=== PATIENT | male | born 1930 | race Caucasian/White ===

== ENCOUNTER 2016-11-02 21:50 | Emergency (ER) | payer MEDICARE, BC ==
[~2016-11-02 21:50] MED LIST: ASAB PO; CORDARONE PO; COUMADIN4 MG PO; FLOMAX4 PO; LOP50 PO; NAMENDA10 MG PO; ZOCOR20 PO
[2016-11-02 22:30] LABS: BASOPHILS 0.4 %; BASOPHILS ABSOLUTE 0.03 10/3/uL (0.0-0.16); EOSINOPHILS ABSOLUTE 0.07 10/3/uL (0.0-0.53); HEMOGLOBIN 15.3 g/dL (13.6-17.8); IMMATURE GRANULOCYTES 0.4 %; IMMATURE GRANULOCYTES ABSOLUTE 0.03 10/3/uL (0.0-0.11); LYMPHOCYTES 24.4 %; LYMPHOCYTES ABSOLUTE 1.79 10/3/uL (0.67-4.30); MEAN CORPUS HGB CONC 33.6 g/dL (32.0-36.0); MEAN CORPUSCULAR HEMOGLOB 32.3 pg (26.0-34.0); MEAN PLATELET VOLUME 10.5 fL (9.2-13.0); MONOCYTES 9.7 %; MONOCYTES ABSOLUTE 0.71 10/3/uL (0.21-1.20); NEUTROPHILS 64.1 %; PLATELET COUNT 183 10/3/uL (150-400); RBC DISTRIBUTION WIDTH 14.3 % (12.0-16.0); RED CELL COUNT 4.73 10/6/uL (4.7-6.1); WHITE BLOOD CELLS 7.3 10/3/uL (4.5-10.5)
[2016-11-02 22:46] LABS: A/G RATIO 0.7 (0.7-1.9); ALBUMIN 3.5 G/DL (3.5-5.0); ALKALINE PHOSPHATASE 86 U/L (45-117); BUN (BLOOD UREA NITROGEN) 29 MG/DL (6-23); CALCIUM, SERUM 9.1 MG/DL (8.5-10.4); CHLORIDE, SERUM 103 MMOL/L (96-112); CO2 (CARBON DIOXIDE) 28 MMOL/L (24-34); CREATININE 1.32 MG/DL (0.70-1.30); GFR AFRICAN AMERICAN 56 ML/MIN (>=60); GFR NON AFRICAN AMERICAN 49 ML/MIN (>=60); GLOBULIN 4.8 G/DL (2.5-4.1); GLUCOSE, SERUM 122 MG/DL (60-99); POTASSIUM, SERUM 4.5 MMOL/L (3.5-5.3); SGOT(AST) 28 U/L (5-40); SGPT(ALT) 29 U/L (5-65); SODIUM, SERUM 139 MMOL/L (135-148); TOTAL BILIRUBIN 1.2 MG/DL (0-1.2); TOTAL PROTEIN 8.3 G/DL (6.0-8.5); TROPONIN I <0.02 NG/ML (<0.05)
[2016-11-02 22:47] LABS: HEMATOCRIT 45.6 % (40.0-51.0); MANUAL DIFF NO %; MEAN CORPUSCULAR VOLUME 96.4 fL (80-100)
[2016-11-03 03:00] LABS: ASCORBIC ACID (UR NOT ORDER) NEG (NEG); BILIRUBIN, URINE NEGATIVE (NEG); ER URINALYSIS TAT 0 Hrs 00 Mins; KETONE, URINE NEGATIVE (NEG); LEUKOCYTE ESTERASE(NOT OR NEG (NEG); NITRITE (URINE) NEG (NEG); WBC (NOT ORDERED) (RFLEX) 0 (0-5)
[2016-11-03 05:00] LABS: INTERNATIONAL NORMAL RATI 2.2 UNITS (-); PARTIAL THROMBO TIME 58.5 SEC (22.5-37.2)
[2016-11-03 05:15] LABS: PROTIME (NOT ORD) 24.6 SEC (12.0-14.5)
== END 2016-11-03 11:16 | disposition home or self-care (01) ==
LOC: ER 21:50
PROVIDERS: Nurse Practitioner Acute Care; Specialist
DX: R53.1 Weakness (principal); R19.7 Diarrhea, unspecified; F03.90 Unspecified dementia, unspecified severity, without behavioral disturbance, psychotic disturbance, mood disturbance, and anxiety; I10 Essential (primary) hypertension; F32.9 Major depressive disorder, single episode, unspecified; I48.0 Paroxysmal atrial fibrillation; Z86.73 Personal history of transient ischemic attack (TIA), and cerebral infarction without residual deficits; Z87.891 Personal history of nicotine dependence; Z88.8 Allergy status to other drugs, medicaments and biological substances; Z79.82 Long term (current) use of aspirin; Z79.899 Other long term (current) drug therapy
CPT/HCPCS: 71020; 80053; 81001; 84484; 85025; 85610; 85730; 87040; 93005; 99284

== ENCOUNTER 2016-12-27 17:44 | Inpatient (IN) | payer MEDICARE, BC ==
--- NOTE | ~2016-12-27 | DS ---
Discharge Summary [facility] [address] [place]. [address] NAME: TIFFANIE CONRAD JR : 30 STATUS : DIS IN PAT#: [id number] AGE: 86 ADM/REG DATE : 12/29/16 MR#: [id number] REPORT SERV DATE: 01/02/17 DICTATED BY: OMAYRA WINTERS DATE: 01/01/17 REPORT STATUS : Draft TRANSCRIBED BY: MODL DATE: 01/01/17 ADMISSION DATE: 12/29/2016 DISCHARGE DATE: 01/01/2017 HISTORY OF PRESENT ILLNESS: The patient is an 86-year-old male with a history of hypertension, BPH, atrial fibrillation, who presented to the hospital with a complaint of fevers and night sweats. For further details, please refer to H and P dictated by Dr. Hebert on 12/27/2016. HOSPITAL COURSE: I assumed care of the patient starting 12/30/2016. Briefly, the patient came into the emergency room with complaint of fever, night sweats, and urinary frequency. The patient was noted to have a positive UA in the emergency room. Given his symptoms and age, the patient was admitted under the Hospitalist Service for further evaluation and management. The patient was empirically started on broad spectrum antibiotic empirically. Urine cultures were obtained, which were positive for E coli. The patient was continued on antibiotics pending culture results. Upon availability of culture results, therapy was narrowed. The patient has completed antibiotic course. Repeat urine culture was negative. At the time of my assumption of care, the patient was no longer complaining of urinary symptoms; however, he was complaining of weakness and his white count was noted to be elevated. At the time of my assumption of care, the patient was also on IV antibiotics. Given resolution of his symptoms and given that the patient did not have any findings consistent with pneumonia, his IV antibiotics were discontinued. His white count continued to trend down and is currently normal. For his generalized weakness, Physical Therapy was consulted. Per their evaluation, recommendations were made for the patient to be discharged to [facility]. The patient was ready for discharge; however, there was no bed availability. Insurance approval has been obtained for the patient and bed has become available at [facility]. The patient has subsequently remained hemodynamically stable; however, prior to this morning, the patient's blood pressure has been controlled. Some of his home antihypertensives were held on admission. However, given his elevated blood pressure this morning, those medications will be restarted. The patient has remained stable. Given his stability and resolution of presenting symptoms, the patient will be discharged to rehab facility at [facility]. Plan has been discussed with the patient, who voices understanding and is agreeable with this plan. DISCHARGE DIAGNOSES: 1. Leukocytosis. 2. Urinary tract infection, secondary to Escherichia coli. 3. Atrial fibrillation. 4. Hypertension. 5. Obesity. 6. Benign prostatic hypertrophy. 7. Hypoxia. 8. Weakness. DISCHARGE EXAM: VITAL SIGNS: 157/89 with a pulse of 70, respirations 20, O2 saturation of 97% on 2 L nasal cannula. The patient has remained afebrile. Discharge Summary [address] [address] NAME: TIFFANIE CONRAD JR : 30 STATUS : DIS IN PAT#: [id number] AGE: 86 ADM/REG DATE : 12/29/16 MR#: [id number] REPORT SERV DATE: 01/02/17 DICTATED BY: OMAYRA WINTESR DATE: 01/01/17 REPORT STATUS : Draft TRANSCRIBED BY: OSCAR DATE: 01/01/17 GENERAL: The patient is lying in bed, very pleasant gentleman. Appears stated age, in no acute distress. HEENT: Normocephalic, atraumatic. Extraocular motors intact. Moist oral mucosa. NECK: Trachea midline and symmetric. No JVD. No thyromegaly noted. CHEST: Nontender to palpation. CARDIOVASCULAR: Irregularly irregular rate and rhythm. LUNGS: Clear to auscultation bilaterally. The patient has normal respiratory effort. ABDOMEN: Positive bowel sounds. Nontender. Nondistended. EXTREMITIES: No cyanosis, no clubbing, no edema. NEUROLOGIC: Alert and oriented x3. DISCHARGE MEDICATIONS: Astelin one spray nasal daily, docusate 100 mg p.o. twice a day, donepezil 10 mg p.o. at bedtime, Prozac 20 mg p.o. daily, Neurontin 100 mg p.o. at bedtime, magnesium oxide 400 mg p.o. daily, memantine 28 mg p.o. daily, metoprolol 20 mg p.o. twice a day, tamsulosin 0.4 mg p.o. every evening, warfarin 5 mg p.o. every evening, furosemide 20 mg p.o. daily, lisinopril 20 mg p.o. daily, potassium chloride 10 mEq p.o. daily. IMAGING: Ultrasound hepatic, echo, impression cholecystectomy. No ductal dilation. Liver appears normal. DISPOSITION: The patient will be discharged to [facility]. ACTIVITY: As tolerated. DIET: Cardiac diet. Greater than 30 minutes was spent coordinating discharge, medication reconciliation, providing counseling, and coordinating discharge. ALL/OSCAR Omayra Winters MD / [id number] CC: Omayra Winters MD
--- NOTE | ~2016-12-27 | HP ---
History And Physical [address] [place]. [address] NAME: TIFFANIE VENCES : 30 STATUS : ADM Fabrice [facility]#: [id number] AGE: 86 ADM/REG DATE : 12/27/16 MR#: [id number] REPORT SERV DATE: 12/27/16 DICTATED BY: TONY AVILA DATE: 12/27/16 REPORT STATUS : Draft TRANSCRIBED BY: MODL DATE: 12/27/16 DATE OF ADMISSION: 12/27/2016 POINT OF ENTRY: [facility] Emergency Department. CHIEF COMPLAINT: Fevers, night sweats. HISTORY OF PRESENT ILLNESS: Mr. Vences is an 86-year-old gentleman with a history of hypertension, hyperlipidemia, paroxysmal atrial fibrillation, on Coumadin as well as a remote history of cerebrovascular accident, who presents here today with a one-day history of low-grade fevers with chills as well as urinary frequency concerning for possible urinary tract infection. The patient states he was in his usual state of health until about one-day ago when he noted low-grade fevers about 99 to 100 degrees Fahrenheit with associated chills. He also reports urinary frequency, but denies any dysuria or urinary odor. Initial evaluation in the emergency department for a fever of 100.2 degrees Fahrenheit with white count is 11,300. INR is 2.5. Urinalysis is positive for urinary tract infection. The patient was subsequently admitted to the Hospitalist Service for further evaluation and management. The patient denies any troubles with chest pain, shortness of breath, abdominal pain, nausea, vomiting, diarrhea, constipation, melena, hematochezia, hemoptysis, or hematemesis. REVIEW OF SYSTEMS: A comprehensive review of systems otherwise negative unless listed in history of present illness. PREVIOUS MEDICAL HISTORY: 1. Remote history of CVA and TIA. 2. Hypertension. 3. Hyperlipidemia. 4. Paroxysmal atrial fibrillation, on Coumadin. 5. BPH. SURGICAL HISTORY: 1. TURP. 2. Cardiac ablation. 3. Cholecystectomy. 4. Facial and cancer surgery. ALLERGIES: NO KNOWN DRUG ALLERGIES. HOME MEDICATIONS: Pending at time of dictation. History And Physical [address] [place] [address] NAME: TIFFANIE VENCES : 30 STATUS : ADM Fabrice PAT#: [id number] AGE: 86 ADM/REG DATE : 12/27/16 MR#: [id number] REPORT SERV DATE: 12/27/16 DICTATED BY: TONY AVILA DATE: 12/27/16 REPORT STATUS : Draft TRANSCRIBED BY: OSCAR DATE: 12/27/16 SOCIAL HISTORY: Denies any tobacco, alcohol, or illicits. Now lives at [facility]. FAMILY MEDICAL HISTORY: Notable for coronary artery disease as well as multiple sclerosis. LABS AND IMAGIN. White count 11.3, hemoglobin 14.2, hematocrit 43.0, platelet count a 169. INR 2.5. 2. Sodium is 140, potassium 4.4, chloride 102, carbon dioxide 32, BUN 21, creatinine 1.24, glucose is 128, calcium is 9.4, protein 8.2, albumin 3.4, bilirubin is 2.2. ALT is 27, AST 18, alkaline phosphatase is 104. 3. Lactic acid is 2.1. 4. Urinalysis: Specific gravity is 1.011, trace ketones, positive nitrites, trace leukocyte esterase with 26 white blood cells per high-powered field with few bacteria. 5. Chest x-ray per my review shows no acute cardiopulmonary abnormality, but with poor penetration and poor inspiration. PHYSICAL EXAMINATION: VITAL SIGNS: Temperature is 100.2 degrees Fahrenheit, pulse is 102, respirations 22, saturating 94% on room air, blood pressure 159/80. GENERAL: The patient is awake, alert, in no acute distress. Resting comfortably. He is a well-developed, well-nourished, elderly male. HEENT: Atraumatic and normocephalic. Slightly dry mucous membranes. Pupils are equal, round, reactive to light and accommodation. Extraocular eye movements are intact. No scleral icterus. NECK: No jugular venous distention. No carotid bruits. CARDIAC: Irregularly irregular rate and rhythm. No murmurs or gallops. Normal S1, S2. LUNGS: Clear to auscultation bilaterally. No wheezes, rhonchi, or crackles. ABDOMEN: Soft, nontender, nondistended. Good bowel sounds. No rebound, guarding, or rigidity. EXTREMITIES: Warm and perfused. No cyanosis, clubbing, or edema. SKIN: Warm and dry. PSYCH: Affect appropriate. NEURO: Alert and oriented x3. Cranial nerves 2 through 12 grossly intact. Speech is normal. Gait not assessed. ASSESSMENT AND PLAN: Mr. Vences is an 86-year-old gentleman who presents with a one-day history of low-grade fevers, chills, and urinary frequency and found to have evidence of positive urinalysis concerning for pyelonephritis. PROBLEM LIST: 1. Pyelonephritis. 2. Dehydration. 3. Paroxysmal atrial ablation, on Coumadin. 4. Hyperbilirubinemia. PLAN: 1. Pyelonephritis. The patient meets criteria for pyelonephritis with fevers as well as chills and a positive urinalysis. We will follow up urine culture. Given History And Physical [address] [address] NAME: TIFFANIE VENCES JR : 30 STATUS : ADM Fabrice PAT#: [id number] AGE: 86 ADM/REG DATE : 12/27/16 MR#: [id number] REPORT SERV DATE: 12/27/16 DICTATED BY: TONY AVILA DATE: 12/27/16 REPORT STATUS : Draft TRANSCRIBED BY: MODL DATE: 12/27/16 pyelonephritis, he is placed on IV cefepime. We will narrow antibiotics per culture results. 2. Dehydration, IV fluids. 3. Paroxysmal atrial fibrillation, on Coumadin. We will continue the patient's home Coumadin, pharmacy to manage. 4. Hyperbilirubinemia. We will check a right upper quadrant ultrasound. Per review of [facility], it reveals that he has had elevated bilirubins in the past, but no evidence of any recent abdominal imaging. 5. DVT prophylaxis. The patient is on Coumadin. CODE STATUS: The patient wishes to be full code. ISMAEL/MODL Tony Avila MD / [id number] CC: MD Julián Lane MD
[2016-12-27 19:15] LABS: BASOPHILS 0.1 %; BASOPHILS ABSOLUTE 0.01 10/3/uL (0.0-0.16); EOSINOPHILS 0.1 %; EOSINOPHILS ABSOLUTE 0.01 10/3/uL (0.0-0.53); ER CBC TAT 0 Hrs 09 Mins; HEMOGLOBIN 14.2 g/dL (13.6-17.8); IMMATURE GRANULOCYTES 0.2 %; IMMATURE GRANULOCYTES ABSOLUTE 0.02 10/3/uL (0.0-0.11); LYMPHOCYTES 8.2 %; LYMPHOCYTES ABSOLUTE 0.93 10/3/uL (0.67-4.30); MANUAL DIFF NO %; MEAN CORPUSCULAR HEMOGLOB 31.7 pg (26.0-34.0); MEAN PLATELET VOLUME 10.9 fL (9.2-13.0); MONOCYTES ABSOLUTE 1.02 10/3/uL (0.21-1.20); NEUTROPHILS 82.4 %; NEUTROPHILS ABSOLUTE 9.35 10/3/uL (2.02-8.40); PLATELET COUNT 169 10/3/uL (150-400); RBC DISTRIBUTION WIDTH 14.7 % (12.0-16.0); RED CELL COUNT 4.48 10/6/uL (4.7-6.1); WHITE BLOOD CELLS 11.3 10/3/uL (4.5-10.5)
[2016-12-27 19:22] LABS: INTERNATIONAL NORMAL RATI 2.5 UNITS (-); PROTIME (NOT ORD) 26.5 SEC (12.0-14.5)
[2016-12-27 19:23] LABS: PARTIAL THROMBO TIME 59.8 SEC (22.5-37.2)
[2016-12-27 19:28] LABS: ASCORBIC ACID (UR NOT ORDER) NEG (NEG); BILIRUBIN, URINE NEGATIVE (NEG); ER URINALYSIS TAT 0 Hrs 24 Mins; KETONE, URINE TRACE MG/DL (NEG); LEUKOCYTE ESTERASE(NOT OR TRACE (NEG); NITRITE (URINE) POS (NEG); WBC (NOT ORDERED) (RFLEX) 26 (0-5)
[2016-12-27 19:29] LABS: A/G RATIO 0.7 (0.7-1.9); ALBUMIN 3.4 G/DL (3.5-5.0); CALCIUM, SERUM 9.4 MG/DL (8.5-10.4); CHLORIDE, SERUM 102 MMOL/L (96-112); CO2 (CARBON DIOXIDE) 32 MMOL/L (24-34); CREATININE 1.24 MG/DL (0.70-1.30); GFR AFRICAN AMERICAN 61 ML/MIN (>=60); GFR NON AFRICAN AMERICAN 52 ML/MIN (>=60); GLOBULIN 4.8 G/DL (2.5-4.1); GLUCOSE, SERUM 128 MG/DL (60-99); POTASSIUM, SERUM 4.4 MMOL/L (3.5-5.3); SGOT(AST) 18 U/L (5-40); SGPT(ALT) 27 U/L (5-65); SODIUM, SERUM 140 MMOL/L (135-148); TOTAL PROTEIN 8.2 G/DL (6.0-8.5)
[2016-12-27 19:30] LABS: LACTATE 2.1 MMOL/L (0.3-2.4)
[2016-12-27 19:33] LABS: ALKALINE PHOSPHATASE 104 U/L (45-117); BUN (BLOOD UREA NITROGEN) 21 MG/DL (6-23); TOTAL BILIRUBIN 2.2 MG/DL (0-1.2)
[2016-12-27] MEDS ORDERED: NORV25 PO (20:48)
[2016-12-27] MEDS ORDERED: CALTRA600D PO (20:48)
[2016-12-27] MEDS ORDERED: NAMENXR28 PO ×2 (20:49→21:19)
[2016-12-27] MEDS ORDERED: DSS PO ×2 (20:49→21:18)
[2016-12-27] MEDS ORDERED: PROBIOTIC PO (20:49)
[2016-12-27] MEDS ORDERED: PRESERVISION A1 EAC1 PO (20:50)
[2016-12-27] MEDS ORDERED: ULTRAM50 PO (20:50)
[2016-12-27] MEDS ORDERED: SODCLTAB PO (20:50)
[2016-12-27] MEDS ORDERED: CYPROHEPTAD4 MG PO (20:50)
[2016-12-27] MEDS ORDERED: ASTELIN NAS (21:17)
[2016-12-27] MEDS ORDERED: PROZAC PO (21:18)
[2016-12-27] MEDS ORDERED: L20 PO (21:18)
[2016-12-27] MEDS ORDERED: PRIN20 PO (21:18)
[2016-12-27] MEDS ORDERED: MAGOX4 PO (21:18)
[2016-12-27] MEDS ORDERED: K-TABS10 MEQ PO (21:19)
[2016-12-27] MEDS ORDERED: LOP50 PO (21:19)
[2016-12-27] MEDS ORDERED: FLOMAX4 PO (21:20)
[2016-12-27] MEDS ORDERED: C5 PO (21:20)
[2016-12-27] MEDS ORDERED: ARICEPT10 PO (21:21)
[2016-12-27] MEDS ORDERED: NEUR100 PO (21:22)
[2016-12-28 05:08] LABS: BASOPHILS 0.1 %; BASOPHILS ABSOLUTE 0.01 10/3/uL (0.0-0.16); EOSINOPHILS 0 %; HEMATOCRIT 40.7 % (40.0-51.0); HEMOGLOBIN 13.5 g/dL (13.6-17.8); IMMATURE GRANULOCYTES 0.4 %; IMMATURE GRANULOCYTES ABSOLUTE 0.06 10/3/uL (0.0-0.11); LYMPHOCYTES 8.5 %; LYMPHOCYTES ABSOLUTE 1.34 10/3/uL (0.67-4.30); MANUAL DIFF NO %; MEAN CORPUS HGB CONC 33.2 g/dL (32.0-36.0); MEAN CORPUSCULAR HEMOGLOB 31.6 pg (26.0-34.0); MEAN CORPUSCULAR VOLUME 95.3 fL (80-100); MEAN PLATELET VOLUME 10.5 fL (9.2-13.0); MONOCYTES 10.2 %; NEUTROPHILS 80.8 %; NEUTROPHILS ABSOLUTE 12.73 10/3/uL (2.02-8.40); PLATELET COUNT 145 10/3/uL (150-400); RED CELL COUNT 4.27 10/6/uL (4.7-6.1); WHITE BLOOD CELLS 15.7 10/3/uL (4.5-10.5)
[2016-12-28 05:15] LABS: INTERNATIONAL NORMAL RATI 2.7 UNITS (-); PROTIME (NOT ORD) 28.3 SEC (12.0-14.5)
[2016-12-28 05:40] LABS: BUN (BLOOD UREA NITROGEN) 22 MG/DL (6-23); CALCIUM, SERUM 8.5 MG/DL (8.5-10.4); CHLORIDE, SERUM 104 MMOL/L (96-112); CO2 (CARBON DIOXIDE) 28 MMOL/L (24-34); CREATININE 1.18 MG/DL (0.70-1.30); FREE T4 1.22 NG/DL (0.76-1.46); GFR AFRICAN AMERICAN 64 ML/MIN (>=60); GFR NON AFRICAN AMERICAN 56 ML/MIN (>=60); GLUCOSE, SERUM 111 MG/DL (60-99); POTASSIUM, SERUM 4.6 MMOL/L (3.5-5.3); SODIUM, SERUM 139 MMOL/L (135-148)
[2016-12-28 05:41] LABS: ULTRASENSITIVE TSH 0.789 MCIU/ML (0.358-3.740)
[2016-12-28 14:15] LABS: ASCORBIC ACID (UR NOT ORDER) NEG (NEG); BILIRUBIN, URINE NEGATIVE (NEG); KETONE, URINE 20 MG/DL (NEG); LEUKOCYTE ESTERASE(NOT OR TRACE (NEG); WBC (NOT ORDERED) (RFLEX) 36 (0-5)
[2016-12-29 05:35] LABS: BASOPHILS 0.1 %; BASOPHILS ABSOLUTE 0.01 10/3/uL (0.0-0.16); EOSINOPHILS 0.1 %; EOSINOPHILS ABSOLUTE 0.01 10/3/uL (0.0-0.53); HEMOGLOBIN 11.6 g/dL (13.6-17.8); IMMATURE GRANULOCYTES 0.2 %; IMMATURE GRANULOCYTES ABSOLUTE 0.02 10/3/uL (0.0-0.11); LYMPHOCYTES 11.6 %; LYMPHOCYTES ABSOLUTE 1.22 10/3/uL (0.67-4.30); MEAN CORPUS HGB CONC 32.8 g/dL (32.0-36.0); MEAN CORPUSCULAR HEMOGLOB 31.4 pg (26.0-34.0); MEAN CORPUSCULAR VOLUME 95.9 fL (80-100); MONOCYTES 9.1 %; MONOCYTES ABSOLUTE 0.96 10/3/uL (0.21-1.20); NEUTROPHILS 78.9 %; NEUTROPHILS ABSOLUTE 8.29 10/3/uL (2.02-8.40); PLATELET COUNT 146 10/3/uL (150-400); RBC DISTRIBUTION WIDTH 15.1 % (12.0-16.0); RED CELL COUNT 3.69 10/6/uL (4.7-6.1); WHITE BLOOD CELLS 10.5 10/3/uL (4.5-10.5)
[2016-12-29 05:38] LABS: HEMATOCRIT 35.4 % (40.0-51.0); MANUAL DIFF NO %
[2016-12-29 05:47] LABS: INTERNATIONAL NORMAL RATI 3.2 UNITS (-); PROTIME (NOT ORD) 32.2 SEC (12.0-14.5)
[2016-12-29 05:49] LABS: BUN (BLOOD UREA NITROGEN) 22 MG/DL (6-23); CALCIUM, SERUM 8.1 MG/DL (8.5-10.4); CHLORIDE, SERUM 106 MMOL/L (96-112); CO2 (CARBON DIOXIDE) 26 MMOL/L (24-34); CREATININE 1.01 MG/DL (0.70-1.30); GFR AFRICAN AMERICAN 78 ML/MIN (>=60); GFR NON AFRICAN AMERICAN 67 ML/MIN (>=60); GLUCOSE, SERUM 100 MG/DL (60-99); PHOSPHORUS, SERUM 2.1 MG/DL (2.5-4.5); POTASSIUM, SERUM 4.1 MMOL/L (3.5-5.3); SGOT(AST) 15 U/L (5-40); SGPT(ALT) 17 U/L (5-65); SODIUM, SERUM 140 MMOL/L (135-148)
[2016-12-29 05:56] LABS: A/G RATIO 0.6 (0.7-1.9); ALBUMIN 2.4 G/DL (3.5-5.0); ALKALINE PHOSPHATASE 69 U/L (45-117); GLOBULIN 3.8 G/DL (2.5-4.1); TOTAL BILIRUBIN 1.4 MG/DL (0-1.2); TOTAL PROTEIN 6.2 G/DL (6.0-8.5)
[2016-12-30 06:55] LABS: BASOPHILS 0.2 %; BASOPHILS ABSOLUTE 0.01 10/3/uL (0.0-0.16); EOSINOPHILS 1.7 %; EOSINOPHILS ABSOLUTE 0.11 10/3/uL (0.0-0.53); HEMATOCRIT 38.4 % (40.0-51.0); HEMOGLOBIN 12.4 g/dL (13.6-17.8); IMMATURE GRANULOCYTES 0.5 %; IMMATURE GRANULOCYTES ABSOLUTE 0.03 10/3/uL (0.0-0.11); LYMPHOCYTES 12.9 %; LYMPHOCYTES ABSOLUTE 0.84 10/3/uL (0.67-4.30); MANUAL DIFF NO %; MEAN CORPUS HGB CONC 32.3 g/dL (32.0-36.0); MEAN CORPUSCULAR HEMOGLOB 31.5 pg (26.0-34.0); MEAN CORPUSCULAR VOLUME 97.5 fL (80-100); MEAN PLATELET VOLUME 10.9 fL (9.2-13.0); MONOCYTES 11.8 %; MONOCYTES ABSOLUTE 0.77 10/3/uL (0.21-1.20); NEUTROPHILS 72.9 %; NEUTROPHILS ABSOLUTE 4.74 10/3/uL (2.02-8.40); PLATELET COUNT 147 10/3/uL (150-400); RED CELL COUNT 3.94 10/6/uL (4.7-6.1); WHITE BLOOD CELLS 6.5 10/3/uL (4.5-10.5)
[2016-12-30 07:01] LABS: INTERNATIONAL NORMAL RATI 3.1 UNITS (-); PROTIME (NOT ORD) 31.6 SEC (12.0-14.5)
[2016-12-30 07:19] LABS: A/G RATIO 0.6 (0.7-1.9); ALBUMIN 2.5 G/DL (3.5-5.0); ALKALINE PHOSPHATASE 69 U/L (45-117); BUN (BLOOD UREA NITROGEN) 20 MG/DL (6-23); CALCIUM, SERUM 8.2 MG/DL (8.5-10.4); CHLORIDE, SERUM 105 MMOL/L (96-112); CO2 (CARBON DIOXIDE) 29 MMOL/L (24-34); CREATININE 0.98 MG/DL (0.70-1.30); GFR AFRICAN AMERICAN 81 ML/MIN (>=60); GFR NON AFRICAN AMERICAN 70 ML/MIN (>=60); GLUCOSE, SERUM 85 MG/DL (60-99); PHOSPHORUS, SERUM 1.8 MG/DL (2.5-4.5); POTASSIUM, SERUM 4.3 MMOL/L (3.5-5.3); SGOT(AST) 19 U/L (5-40); SGPT(ALT) 20 U/L (5-65); SODIUM, SERUM 140 MMOL/L (135-148); TOTAL BILIRUBIN 0.9 MG/DL (0-1.2); TOTAL PROTEIN 6.5 G/DL (6.0-8.5)
[2016-12-31 05:14] LABS: BASOPHILS 0.2 %; BASOPHILS ABSOLUTE 0.01 10/3/uL (0.0-0.16); EOSINOPHILS 2.8 %; EOSINOPHILS ABSOLUTE 0.16 10/3/uL (0.0-0.53); IMMATURE GRANULOCYTES 0.3 %; IMMATURE GRANULOCYTES ABSOLUTE 0.02 10/3/uL (0.0-0.11); LYMPHOCYTES 20.4 %; LYMPHOCYTES ABSOLUTE 1.18 10/3/uL (0.67-4.30); MEAN CORPUS HGB CONC 32.4 g/dL (32.0-36.0); MEAN CORPUSCULAR HEMOGLOB 31.5 pg (26.0-34.0); MEAN CORPUSCULAR VOLUME 97.1 fL (80-100); MEAN PLATELET VOLUME 10.8 fL (9.2-13.0); MONOCYTES 12.6 %; MONOCYTES ABSOLUTE 0.73 10/3/uL (0.21-1.20); NEUTROPHILS 63.7 %; NEUTROPHILS ABSOLUTE 3.68 10/3/uL (2.02-8.40); PLATELET COUNT 148 10/3/uL (150-400); RED CELL COUNT 3.81 10/6/uL (4.7-6.1); WHITE BLOOD CELLS 5.8 10/3/uL (4.5-10.5)
[2016-12-31 05:17] LABS: MANUAL DIFF NO %
[2016-12-31 05:31] LABS: A/G RATIO 0.6 (0.7-1.9); ALBUMIN 2.5 G/DL (3.5-5.0); ALKALINE PHOSPHATASE 67 U/L (45-117); BUN (BLOOD UREA NITROGEN) 21 MG/DL (6-23); CALCIUM, SERUM 8.5 MG/DL (8.5-10.4); CHLORIDE, SERUM 107 MMOL/L (96-112); CO2 (CARBON DIOXIDE) 27 MMOL/L (24-34); CREATININE 0.84 MG/DL (0.70-1.30); GFR AFRICAN AMERICAN 92 ML/MIN (>=60); GFR NON AFRICAN AMERICAN 79 ML/MIN (>=60); GLOBULIN 3.9 G/DL (2.5-4.1); GLUCOSE, SERUM 101 MG/DL (60-99); POTASSIUM, SERUM 4.1 MMOL/L (3.5-5.3); SGOT(AST) 17 U/L (5-40); SGPT(ALT) 21 U/L (5-65); SODIUM, SERUM 141 MMOL/L (135-148); TOTAL BILIRUBIN 1.1 MG/DL (0-1.2); TOTAL PROTEIN 6.4 G/DL (6.0-8.5)
[2017-01-01 05:24] LABS: INTERNATIONAL NORMAL RATI 2.7 UNITS (-); PROTIME (NOT ORD) 28.8 SEC (12.0-14.5)
[2017-01-01 05:50] LABS: A/G RATIO 0.7 (0.7-1.9); ALBUMIN 2.6 G/DL (3.5-5.0); ALKALINE PHOSPHATASE 78 U/L (45-117); CALCIUM, SERUM 8.4 MG/DL (8.5-10.4); CHLORIDE, SERUM 109 MMOL/L (96-112); CO2 (CARBON DIOXIDE) 24 MMOL/L (24-34); CREATININE 0.72 MG/DL (0.70-1.30); GFR AFRICAN AMERICAN 98 ML/MIN (>=60); GFR NON AFRICAN AMERICAN 84 ML/MIN (>=60); GLOBULIN 3.5 G/DL (2.5-4.1); GLUCOSE, SERUM 110 MG/DL (60-99); POTASSIUM, SERUM 4.5 MMOL/L (3.5-5.3); SGOT(AST) 20 U/L (5-40); SGPT(ALT) 23 U/L (5-65); SODIUM, SERUM 143 MMOL/L (135-148); TOTAL PROTEIN 6.1 G/DL (6.0-8.5)
[2017-01-01 05:57] LABS: BUN (BLOOD UREA NITROGEN) 16 MG/DL (6-23)
[2017-01-01 07:00] LABS: BASOPHILS 0.2 %; BASOPHILS ABSOLUTE 0.01 10/3/uL (0.0-0.16); EOSINOPHILS ABSOLUTE 0.16 10/3/uL (0.0-0.53); HEMATOCRIT 37.8 % (40.0-51.0); HEMOGLOBIN 12.3 g/dL (13.6-17.8); IMMATURE GRANULOCYTES 0.4 %; IMMATURE GRANULOCYTES ABSOLUTE 0.02 10/3/uL (0.0-0.11); LYMPHOCYTES 19.5 %; LYMPHOCYTES ABSOLUTE 1.05 10/3/uL (0.67-4.30); MEAN CORPUS HGB CONC 32.5 g/dL (32.0-36.0); MEAN CORPUSCULAR HEMOGLOB 31.4 pg (26.0-34.0); MEAN CORPUSCULAR VOLUME 96.4 fL (80-100); MEAN PLATELET VOLUME 11.2 fL (9.2-13.0); MONOCYTES 11.9 %; MONOCYTES ABSOLUTE 0.64 10/3/uL (0.21-1.20); NEUTROPHILS ABSOLUTE 3.51 10/3/uL (2.02-8.40); PLATELET COUNT 124 10/3/uL (150-400); RED CELL COUNT 3.92 10/6/uL (4.7-6.1); WHITE BLOOD CELLS 5.4 10/3/uL (4.5-10.5)
[2017-01-01 07:02] LABS: MANUAL DIFF NO %
== END 2017-01-01 14:33 | DRG 690 ==
LOC: ER 17:44 → CDU1 21:17 → 7NO 21:30
PROVIDERS: Emergency Medicine; Hospitalist
DX: N39.0 Urinary tract infection, site not specified (principal); N17.9 Acute kidney failure, unspecified; I48.0 Paroxysmal atrial fibrillation; E86.0 Dehydration; E78.5 Hyperlipidemia, unspecified; N40.0 Benign prostatic hyperplasia without lower urinary tract symptoms; B96.20 Unspecified Escherichia coli [E. coli] as the cause of diseases classified elsewhere; E66.9 Obesity, unspecified; R09.02 Hypoxemia; Z68.31 Body mass index [BMI] 31.0-31.9, adult; Z90.49 Acquired absence of other specified parts of digestive tract; Z79.01 Long term (current) use of anticoagulants; Z86.73 Personal history of transient ischemic attack (TIA), and cerebral infarction without residual deficits
CPT/HCPCS: 71010; 76705; 80048; 80053; 81001; 82140; 83605; 83690; 83735; 84100; 84439; 84443; 85025; 85610; 85730; 87040; 87077; 87086; 87186; 87493; 87493-59; 93005; 94640; 97116-GP; 97161-GP; 99285; A9270-GY; G8978-CK-GP; G8979-CI-GP; J0360; J0690; J0692; J1956